=== PATIENT | male | born 1990 | race Caucasian/White ===

== ENCOUNTER 2016-08-14 | Outpatient (CLI) | payer MEDICAID | END 2016-08-14 02:45 | disposition critical access hospital (66) | CPT/HCPCS: A0425; A0427 ==

== ENCOUNTER 2016-08-14 03:01 | Emergency (ER) | payer MEDICAID ==
[2016-08-14] MEDS ORDERED: HYDROmorphone 1 MG/ML SYRINGE ONE (03:39)
[2016-08-14] MEDS ORDERED: KETOROLAC 30 MG/ML VIAL ONE (03:39)
[2016-08-14] MEDS ORDERED: ONDANSETRON 4 MG/2 ML VIAL ONE (03:39)
[2016-08-14] MEDS ORDERED: MAG HYDROX/AL HYDROX/SIMETH 30 ML UDC ONE ×2 (05:50→06:48)
[2016-08-14] MEDS ORDERED: FAMOTIDINE 20 MG/50 ML 50 ML IV ONE (05:50)
[2016-08-14] MEDS ORDERED: LIDOCAINE VISCOUS 2% 15 ML UDC MM ONE (06:49)
== END 2016-08-14 06:05 | disposition home or self-care (01) ==
DX: K29.70 Gastritis, unspecified, without bleeding (principal)
CPT/HCPCS: 36415; 76705; 80053; 83690; 85025; 96365; 96375; 99284; A9270; J1170

== ENCOUNTER 2016-08-31 10:33 | Outpatient (CLI) | payer MEDICAID | END 2016-08-31 10:34 | disposition home or self-care (01) | DX: R19.7 Diarrhea, unspecified (principal); R10.11 Right upper quadrant pain ==

== ENCOUNTER 2016-09-01 10:31 | Outpatient (CLI) | payer MEDICAID | END 2016-09-01 10:32 | DX: R19.7 Diarrhea, unspecified (principal); R10.11 Right upper quadrant pain ==